=== PATIENT | male | born 1995 | race Caucasian/White ===

== ENCOUNTER 2017-05-02 23:20 | Emergency (ER) | payer OTHER ==
[~2017-05-02] VITALS: Ht 190.5 cm; Wt 84.3 kg
[~2017-05-02 23:20] MED LIST: BACTRIM,SEPT1 TABLET PO; NAPROSYN500 MG PO; TRAMADOL HCL50 MG PO
[2017-05-02 23:33] VITALS: BP 130/72
== END 2017-05-03 01:00 | disposition left against medical advice (07) ==
LOC: EME 23:20
DX: S61.214A Laceration without foreign body of right ring finger without damage to nail, initial encounter (principal); W22.8XXA Striking against or struck by other objects, initial encounter; Y92.821 Forest as the place of occurrence of the external cause; Z53.21 Procedure and treatment not carried out due to patient leaving prior to being seen by health care provider